=== PATIENT | male | born 1945 | race Hispanic/Latino ===

== ENCOUNTER → 2021-05-24 14:33 | Outpatient (CLI) | payer MEDICARE, SELFPAY ==
--- NOTE | 2021-05-24 | DI.ECHO.S_ITS ---
[facility] +---------+ : : [address] : [place] : : : : [id number] : : : : Phone: [phone]+ Echocardiogram Report + + :Name: TONIO LAROSE Study Date: 05/24/2021 Height: 69 in : :[facility] ReadingLocation: Weight: 242 lb : : Gender: Male BSA: 2.2 m2 : :: 1945 Age: 75 yrs BP: 149/76 mmHg: :Reason For Study: ATRIAL FIBRILLATION : :Ordering Physician: STEFANY, : :MICKEY Performed By: Hoda Pierre : :Referring: MICKEY ROBLES : + + Interpretation Summary 1) Normal left ventricular size, wall motion, and systolic function (EF 55- 60%). 2) Mildly enlarged right ventricle with normal function. 3) Severe left atrial enlargement present. 4) No significant valvular abnormalities. 5) No prior Echo available for comparison. Procedure: A two-dimensional transthoracic echocardiogram with color flow and Doppler was performed. The study quality was technically adequate. There is no prior echocardiogram noted for this patient. The patient was in atrial fibrillation with heart rates between 35-50 bpm during the exam. Left Ventricle: The left ventricle is normal in size. There is borderline concentric left ventricular hypertrophy. The ejection fraction is estimated to be 55-60%. Left ventricular systolic function appears normal without focal wall motion abnormalities. Right Ventricle: The right ventricle is mildly dilated. The right ventricular systolic function is normal. Atria: The left atrium is severely dilated. The right atrium is mildly dilated. There is no Doppler evidence for an interatrial shunt. Mitral Valve: The mitral valve is normal in structure and function. There is mild mitral regurgitation. Aortic Valve: The aortic valve is trileaflet. The aortic valve opens well. There is no aortic valve stenosis. No aortic regurgitation is present. Tricuspid Valve: The tricuspid valve is normal in structure and function. There is trace tricuspid regurgitation. Pulmonary artery pressures cannot be estimated because of the lack of a measurable TR jet velocity but the IVC suggests a CVP of around 8 mmHg. Pulmonic Valve: The pulmonic valve leaflets are thin and pliable; valve motion is normal. There is no pulmonic valvular regurgitation. Great Vessels: The aortic root is normal size. The dimensions of the ascending aorta are normal. The IVC is dilated (diameter is greater than 2.1 cm) yet it collapses greater than 50% with a sniff. This suggests a right atrial pressure of 8 mm Hg. Pericardium/ Pleura There is no pericardial effusion. There is no pleural effusion. MMode/2D Measurements & Calculations LVIDd: 4.7 cm LVOT diam: 2.1 cm LVIDs: 3.1 cm Ao root diam: 3.8 cm FS: 34.6 % asc Aorta Diam: 3.6 cm IVSd: 1.1 cm Ao Arch Diam (Prox Trans): 3.1 cm LVPWd: 0.98 cm LV santos. diameter/BSA (cm/m^2): 2.1 LV sys. diameter/BSA (cm/m^2): 1.4 LA A2 area: 36.1 cm2 RA long axis: 6.2 cm LA A4 area: 34.2 cm2 RA area: 25.8 cm2 LA length (vol): 7.3 cm RA vol: 90.7 ml LA vol: 143.2 ml RA : 40.5 ml/m2 LA vol index: 63.9 ml/m2 IVC diam: 2.2 cm RVD1 (basal): 4.4 cm TAPSE: 2.3 cm Doppler Measurements & Calculations Ao V2 max: 140.2 cm/sec LVOT Max Anthony: 89.8 cm/sec Ao V2 mean: 97.1 cm/sec LV V1 max P.2 mmHg Ao max P.9 mmHg LV V1 VTI: 20.5 cm Ao mean P.3 mmHg JAMES(I,D): 2.3 cm2 Ao V2 VTI: 31.3 cm JAMES(V,D): 2.2 cm2 sev ratio: 0.66 JAMES indexed to BSA (cm^2/m^2): 1.0 MV E max anthony: 84.3 cm/sec PA V2 max: 89.8 cm/sec MV A max anthony: 1.4 cm/sec PA V2 mean: 63.9 cm/sec MV E/A: 61.4 PA mean P.9 mmHg Med Peak E' Anthony: 7.7 cm/sec PA pr(Accel): 41.3 mmHg E/E' med: 11.0 Lat Peak E' Anthony: 13.0 cm/sec E/E' lat: 6.5 E/e' average: 8.7 MV dec time: 0.27 sec SVLVOT): 70.5 ml Reading Physician:05:31 PM
== END ==
PROVIDERS: PCP Internal Medicine; Referring Provider Internal Medicine Cardiovascular Disease; Visit Provider Internal Medicine Cardiovascular Disease
DX: I34.0 Nonrheumatic mitral (valve) insufficiency (principal); I48.11 Longstanding persistent atrial fibrillation
CPT/HCPCS: 93306